=== PATIENT | female | born 1960 | race African-American/Black ===

== ENCOUNTER 2018-01-23 07:01 | Inpatient (IN) | payer OTHER ==
[2018-01-22 14:22] VITALS: BMI 25.8
[2018-01-23] MEDS ORDERED: ROPIVACAINE HCL 0.5% 30ML VIAL ONE (08:20)
[2018-01-23] MEDS ORDERED: MIDAZOLAM HCL 2 MG/2 ML SINGLE DOSE VIAL ONE ×3 (08:23→08:29)
[2018-01-23] MEDS ORDERED: ROCURONIUM BROMIDE 50 MG/5 ML VIAL ONE ×2 (08:29)
[2018-01-23] MEDS ORDERED: fentaNYL CITRATE 250 MCG/5 ML VIAL ONE (08:29)
[2018-01-23] MEDS ORDERED: KETOROLAC TROMETHAMINE 30 MG/1 ML VIAL ONE (08:30)
[2018-01-23] MEDS ORDERED: DEXAMETHASONE SOD PHOSPHATE 4 MG/1 ML VIAL ONE ×2 (08:30→12:28)
[2018-01-23] MEDS ORDERED: LACTATED RINGERS SOLUTION 1,000 ML IV SCH (09:30)
[2018-01-23] MEDS ORDERED: ONDANSETRON 4 MG/2 ML VIAL IVPUSH PRN ×2 (09:30→12:57)
[2018-01-23] MEDS ORDERED: SUCCINYLCHOLINE CHLORIDE 200 MG/10 ML VIAL ONE (09:42)
--- NOTE | 2018-01-23 09:47 | HP ---
Admitting History and Physical - Primary Care Physician PCP: Eliane Walker - Admission Chief Complaint: 57yo P1 with large fibroid uterus and Recurrent Perimenopausal bleed,. 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's Cardiovascular: No: AFIB Pulmonary: No: Asthma Gastrointestinal: No: Ascites ...: No ...: 1 ...Para: 1 - Past Surgical History Past Surgical History: Yes: Breast Biopsy Additional Past Surgical History: Brest biopsy - Advance Directives Advance Directives: Yes: Living Will, Health Care Proxy - Smoking History Smoking history: Never smoked - Alcohol/Substance Use Hx Alcohol Use: Yes (occas) Home Medications - Allergies Allergies/Adverse Reactions: Allergies Allergy/AdvReac Type Severity Reaction Status Date / Time coconut Allergy Intermediate Swelling Verified 01/22/18 14:23 No Known Drug Allergies Allergy Verified 01/22/18 14:23 - Home Medications Home Medications: Ambulatory Orders Aspirin [Aspirin EC] 81 mg PO DAILY 01/22/18 Cholecalciferol (Vitamin D3) [Vitamin D] 2,000 unit PO DAILY 01/22/18 Magnesium Oxide [Magnesium] 500 mg PO DAILY 01/22/18 Multivitamins [Tab-A-Vit -] 1 tab PO DAILY 01/22/18 Red Yeast Rice 600 mg PO DAILY 01/22/18 Simvastatin 10 mg PO HS 01/22/18 Ubidecarenone/Vit E Acet [Co Q-10 100 mg Softgel] 1 each PO DAILY 01/22/18 Family Disease History - Family Disease History Family Disease History: Heart Disease: Father (Prostate, Colon, HTN), CA: Father Review of Systems - Review of Systems Constitutional: reports: No Symptoms Eyes: reports: No Symptoms HENT: reports: No Symptoms Neck: reports: No Symptoms Cardiovascular: reports: No Symptoms Respiratory: reports: No Symptoms Gastrointestinal: reports: No Symptoms Genitourinary: reports: Vaginal Bleeding Breasts: reports: No Symptoms Reported Musculoskeletal: reports: No Symptoms Integumentary: reports: No Symptoms Neurological: reports: No Symptoms Endocrine: reports: No Symptoms Hematology/Lymphatic: reports: No Symptoms Psychiatric: reports: No Symptoms Physical Examination Vital Signs: Vital Signs Temperature 97.7 F 01/23/18 07:48 Pulse Rate 63 01/23/18 07:48 Respiratory Rate 18 01/23/18 07:48 Blood Pressure 104/52 01/23/18 07:48 O2 Sat by Pulse Oximetry (%) 97 01/23/18 07:49 Constitutional: Yes: Well Nourished, No Distress, Calm Eyes: Yes: WNL, Conjunctiva Clear, EOM Intact HENT: Yes: WNL, Atraumatic, Normocephalic Neck: Yes: WNL, Supple, Trachea Midline Cardiovascular: Yes: WNL, Regular Rate and Rhythm Respiratory: Yes: WNL, Regular, CTA Bilaterally Gastrointestinal: Yes: WNL, Normal Bowel Sounds, Soft Renal/: Yes: WNL, Vaginal Bleeding (Uterus ~ 15wks, irregular) Breast(s): Yes: WNL Musculoskeletal: Yes: WNL Extremities: Yes: WNL Integumentary: Yes: WNL Neurological: Yes: WNL, Alert, Oriented ...Motor Strength: WNL Psychiatric: Yes: WNL, Alert, Oriented Assessment/Plan 57yo P1 for CHRISTA/JAMAL/BL Salpingectomy Risks/Benefits/Alternatives discussed She had neg Endometrial biopsy less than 6mn ago All questions answered Consent signed
[2018-01-23] MEDS ORDERED: ceFAZolin 2 GRAM PREMIX BAG IVPB ONE (10:00)
[2018-01-23] MEDS ORDERED: ceFAZolin SODIUM 1 GM VIAL ONE (10:35)
[2018-01-23] MEDS ORDERED: ceFAZolin SODIUM 1 GM VIAL IVPB ONE (10:36)
[2018-01-23] MEDS ORDERED: ePHEDrine SULFATE 50 MG/1 ML AMPULE ONE (12:00)
[2018-01-23] MEDS ORDERED: BACITRACIN 15 GM TUBE TOPICAL OINTMENT ONE (12:26)
[2018-01-23] MEDS ORDERED: BACITRACIN 15 GM TUBE TOPICAL OINTMENT TP ONE (12:43)
[2018-01-23] MEDS ORDERED: NEOSTIGMINE METHYLSULFATE 0.5 MG/ML - 10 ML MDV ONE (12:47)
[2018-01-23] MEDS ORDERED: GLYCOPYRROLATE 0.2 MG/1 ML VIAL ONE (12:47)
--- NOTE | 2018-01-23 12:55 | OP ---
Operative Note - Note: Operative Date: 01/23/18 Pre-Operative Diagnosis: 57yo P1 with Recurrent Perimenopausal bleeding, large fibroid uterus Operation: Supracervical Hysterectomy, Lysis of adhesions, Bilateral salpingectomy Findings: Multiple bowel and bladder adhesions, Broad ligament fibroid, multiple fibroids, Bilateral normal ureters and ovaries visualized Post-Operative Diagnosis: Same as Pre-op (and multiple pelvic adhesions) Surgeon: Eliane Walker Turbine Room Attendant: Tian Milton Anesthesiologist/UNIT EDUCATOR: El Bailey Anesthesia: General Specimens Removed: Urerus, Broad ligament fibroid, Bilateral tubes Estimated Blood Loss (mls): 650 Drains, Volume Out (mls): 250 Fluid Volume Replaced (mls): 1,700 Operative Report Dictated: Yes
[2018-01-23] MEDS ORDERED: IBUPROFEN 600 MG TABLET (FP) PO PRN (12:57)
[2018-01-23] MEDS ORDERED: oxyCODONE HCL 5 MG TABLET PO PRN (12:57)
[2018-01-23] MEDS ORDERED: ELECTROLYTE-148 SOLN 1,000 ML IV SCH (13:00)
[2018-01-23] MEDS ORDERED: ACETAMINOPHEN INJECTION 100 ML IVPB ONE (13:24)
[2018-01-23] MEDS: IBUPROFEN 800 MG/8 ML IJ IVPB PRN ×2 (13:30→21:02)
[2018-01-23] MEDS: ACETAMINOPHEN 1000 MG/100 ML VIAL (NON FORMULARY) IVPB ONE ×2 (14:40→15:22)
[2018-01-23] MEDS ORDERED: ACETAMINOPHEN 1000 MG/100 ML VIAL (NON FORMULARY) IVPB PRN (18:36)
--- NOTE | 2018-01-24 12:37 | PN ---
Progress Note, Physician Chief Complaint: 57yo P1 s/p CHRISTA/ BL salpingectomy, POD # 1 History of Present Illness: no complains, pain well controlled, tolerating clears, ambulating, voiding - Current Medication List Current Medications: Active Medications Acetaminophen (Ofirmev Injection -) 1,000 mg IVPB Q8H PRN PRN Reason: PAIN IF PO NOT EFFECTIVE Parenteral Electrolytes (Plasma-Lyte 148 -) 1,000 mls @ 125 mls/hr IV ASDIR CHRISTA Ibuprofen (Motrin -) 600 mg PO Q6H PRN PRN Reason: FEVER Ibuprofen (Caldolor Injection -) 800 mg IVPB Q6H PRN PRN Reason: Fever - If PO not effective. Last Admin: 01/23/18 21:02 Dose: 800 mg Ondansetron HCl (Zofran Injection) 4 mg IVPUSH Q6H PRN PRN Reason: NAUSEA Last Admin: 01/23/18 16:49 Dose: 4 mg Oxycodone HCl (Roxicodone -) 5 mg PO Q4H PRN PRN Reason: PAIN LEVEL 1-5 Stop: 01/24/18 12:56 - Objective Vital Signs: Vital Signs Temperature 98.5 F 01/24/18 10:00 Pulse Rate 71 01/24/18 10:00 Respiratory Rate 18 01/24/18 10:00 Blood Pressure 94/54 01/24/18 10:00 O2 Sat by Pulse Oximetry (%) 100 01/24/18 10:00 Constitutional: Yes: Well Nourished, No Distress, Calm Eyes: Yes: WNL, Conjunctiva Clear, EOM Intact HENT: Yes: WNL, Atraumatic, Normocephalic Neck: Yes: WNL, Supple, Trachea Midline Cardiovascular: Yes: WNL, Regular Rate and Rhythm Respiratory: Yes: WNL, Regular, CTA Bilaterally Gastrointestinal: Yes: WNL (no CVA tenderness), Normal Bowel Sounds, Soft Genitourinary: Yes: WNL Breast(s): Yes: WNL Musculoskeletal: Yes: WNL Extremities: Yes: WNL Edema: No Wound/Incision: Yes: Clean/Dry, Well Approximated Neurological: Yes: WNL, Alert, Oriented ...Motor Strength: WNL Psychiatric: Yes: WNL, Alert, Oriented Assessment/Plan 57yo P1 POD#1 s/p CHRISTA/JAMAL/BL Salpingectomy Doing well, VSS Follow CBC Continue routine PostOp care encourage ambulation, incentive spirometer Plan to D/C in am
[2018-01-24 14:16] LABS: BASO % 0.3 % (0-2.0); EOS % 0.4 % (0-4.5); HEMATOCRIT 29.3 % (32.4-45.2); HEMOGLOBIN 9.9 GM/dL (10.7-15.3); LYMPH % 15.6 % (8-40); MCH 30.3 pg (25.7-33.7); MCHC 33.6 g/dl (32.0-36.0); MEAN PLT VOLUME 8.3 fl (7.5-11.1); MONO % 8.9 % (3.8-10.2); NEUT % 74.8 % (42.8-82.8); PLATELET COUNT 163 K/MM3 (134-434); RBC 3.25 M/mm3 (3.60-5.2); RDW 13.6 % (11.6-15.6); WHITE BLOOD COUNT 6.6 K/mm3 (4.0-10.0)
[2018-01-24 14:35] LABS: ANION GAP 6 (8-16); BLOOD UREA NITROGEN 12 mg/dL (7-18); CALCIUM 7.9 mg/dL (8.5-10.1); CHLORIDE 106 mmol/L (98-107); CO2 29 mmol/L (21-32); GLUCOSE,RANDOM 109 mg/dL (74-106); POTASSIUM 3.5 mmol/L (3.5-5.1); SODIUM 141 mmol/L (136-145)
--- NOTE | 2018-01-24 15:14 | PN ---
Progress Note (short form) - Note Progress Note: Anesthesia postop note 57 y/o F s/p GA for AIDEN, TAP blocks for postop pain management POD#1, vss, aaox3, pain well controlled, no complaints. No anesthesia complications.
[2018-01-25 08:32] VITALS: BP 105/57; PULSE 73; TEMP 98.3
--- NOTE | 2018-01-25 14:20 | PN ---
Progress Note, Physician Chief Complaint: 57yo P1 s/p CHRISTA/ BL salpingectomy, POD # 1 History of Present Illness: no complains, pain well controlled, tolerating clears, ambulating, voiding - Current Medication List Current Medications: Active Medications Acetaminophen (Ofirmev Injection -) 1,000 mg IVPB Q8H PRN PRN Reason: PAIN IF PO NOT EFFECTIVE Parenteral Electrolytes (Plasma-Lyte 148 -) 1,000 mls @ 125 mls/hr IV ASDIR CHRISTA Ibuprofen (Motrin -) 600 mg PO Q6H PRN PRN Reason: FEVER Ibuprofen (Caldolor Injection -) 800 mg IVPB Q6H PRN PRN Reason: Fever - If PO not effective. Last Admin: 01/23/18 21:02 Dose: 800 mg Ondansetron HCl (Zofran Injection) 4 mg IVPUSH Q6H PRN PRN Reason: NAUSEA Last Admin: 01/23/18 16:49 Dose: 4 mg - Objective Vital Signs: Vital Signs Temperature 98.3 F 01/25/18 08:31 Pulse Rate 73 01/25/18 08:31 Respiratory Rate 18 01/25/18 08:31 Blood Pressure 105/57 01/25/18 08:31 O2 Sat by Pulse Oximetry (%) 100 01/24/18 10:00 Constitutional: Yes: Well Nourished Eyes: Yes: WNL HENT: Yes: WNL, Atraumatic, Normocephalic. No: Tonsillar Exudate Neck: Yes: WNL, Supple, Trachea Midline Cardiovascular: Yes: WNL, Regular Rate and Rhythm Respiratory: Yes: WNL, Regular, CTA Bilaterally Gastrointestinal: Yes: WNL, Normal Bowel Sounds, Soft Genitourinary: Yes: WNL Breast(s): Yes: WNL Musculoskeletal: Yes: WNL Extremities: Yes: WNL Integumentary: Yes: WNL Wound/Incision: Yes: Clean/Dry, Well Approximated Neurological: Yes: WNL, Alert, Oriented ...Motor Strength: WNL Psychiatric: Yes: WNL, Alert, Oriented Labs: CBC, BMP 01/24/18 14:00 01/24/18 14:00 Assessment/Plan 57yo P1 s/p CHRISTA/JAMAL/BL Salpingectomy Doing well Afebrile VSS cont routine post op care
--- NOTE | 2018-01-26 18:12 | PATH ---
Surgical Pathology Report Patient Name: ADRIAN PRECIADO [facility]. Rec. #: [id number] /Age/Gender: 1960 (Age: 57) / F Account: [id number] Location: [facility] OBS/MATERNAL CHILD NURSE Taken: 01/23/2018 Received: 01/23/2018 Reported: 01/26/2018 Physicians: Eliane Walker M.D. Specimen(s) Received UTERUS FIBROIDS BILATERAL FALLOPIAN TUBES Clinical History Postmenopausal bleeding, fibroid uterus Final Diagnosis UTERUS, FIBROIDS, BILATERAL FALLOPIAN TUBES, SUPRACERVICAL HYSTERECTOMY AND BILATERAL SALPINGECTOMY: PROLIFERATIVE ENDOMETRIUM. MYOMETRIUM WITH SUBSEROSAL AND INTRAMURAL LEIOMYOMA(TA), FOCALLY DEGENERATED AND CALCIFIED. SCANT CAUTERIZED ENDOCERVICAL EPITHELIUM. BILATERAL FALLOPIAN TUBES (INCLUDING FULL LUMINAL PORTION). Electronically Signed Mary Jane Roman M.D. Gross Description Received in formalin labeled "uterus, fibroids, bilateral fallopian tubes," is a 541 g supracervically amputated uterus with no attached adnexa. The bilateral, undesignated fallopian tubes are separately received within the same container. The specimen measures 13 cm from anterior to posterior, 13 cm from left to right and 9.5 cm from superior to inferior. The serosa is patricia-maradiaga with abundant bulging subserosal nodules. The endometrial cavity is distorted by bulging intramural nodules. The endometrial cavity measures 6 cm in length and averages 2 cm in from cornu to cornu. The endometrium is patricia-red and averages 0.1 cm in thickness. The myometrium displays abundant intramural nodules, measuring up to 5.5 cm in greatest dimension. The cut surface of the subserosal and intramural nodules is patricia and rubbery with whorled architecture. No areas of hemorrhage or necrosis are identified. The remaining myometrium is patricia-pink and measures up to 4.6 cm in thickness. There is a 108 g, 6.0 x 5.5 x 5.0 cm calcified fibroid separately received within the same container. Also received within the same container are 2 undesignated, fimbriated fallopian tubes measuring 2.5 and 4.5 cm in length. The outer surfaces are maradiaga purple and smooth. Sectioning reveals unremarkable lumen. [employer] sections are submitted in 18 cassettes as follows: 1-cervical stump margin of resection; 1-7-kausypzdvlwdmv; 0-8-kwagjoycpg nodules; 8-9-largest intramural nodule; 08-84-ofbrhhbrfu intramural nodules; 26-22-tagkmnmcff received calcified fibroid, following decalcification; 15-longer fallopian tube fimbria; 16-cross sections of longer fallopian tube; 17-shorter fallopian tube fimbria; 18-cross sections of shorter fallopian tube. 01/24/2018 [facility]01/24/2018
--- NOTE | 2018-02-03 17:33 | OP ---
DATE OF OPERATION: 01/23/2018 PREOPERATIVE DIAGNOSIS: A 57-year-old para 1 with recurrent perimenopausal postmenopausal bleeding. Large fibroid uterus. OPERATION: Supracervical hysterectomy, lysis of adhesions, bilateral salpingectomy. POSTOPERATIVE DIAGNOSIS: A 57-year-old para 1 with recurrent perimenopausal postmenopausal bleeding. Large fibroid uterus. Multiple pelvic adhesions. FINDINGS: Multiple bowel and bladder adhesions, broad ligament fibroid, multiple fibroids. Bilateral normal ureters and ovaries visualized. SURGEON: Eliane Walker MD LANG INTERPRETER: Tian Milton MD ANESTHESIOLOGIST: El Bailey ANESTHESIA: General. SPECIMENS REMOVED: Uterine fundus, broad ligament fibroid, and bilateral tubes. DESCRIPTION OF OPERATIVE PROCEDURE: After ensuring informed consent, the patient was brought to the operating room where she was placed in supine position. Abdomen, perineum, and vagina were prepped and draped in a sterile fashion. Deleon catheter was placed sterilely prior to the procedure. Pfannenstiel incision was made with a scalpel and carried down to the level of fascia with the Bovie cautery. The fascia was incised in the midline and dissected off the rectus abdominis muscle. Rectus abdominis muscle was split in the midline. The peritoneum was tented with hemostat and incised with Metzenbaum scissors with good visualization of underlying organs. The peritoneum was dissected inferiorly and superiorly, and normal abdominal contents were visualized. The difficulty was encountered exteriorizing uterus because it was adherent to the sigmoid colon and several other loops of bowel as well as the bladder and right lateral pelvic sidewall. Uterus was extremely distorted with multiple fibroids the majority of which were degenerated. Round ligament was stretched out and was visualized and dissected with LigaSure in pairs on both sides of the uterus. The bladder flap was created with LigaSure and Metzenbaum scissors, and bladder adhesions were dissected off the vesicouterine peritoneum. Subsequently, uterine arteries were identified and dissected off individually, Joaquín clamped, and tied with 0 Vicryl tie bilaterally. The peritoneum on the posterior wall of the uterus was firmly adherent to multiple loops of bowel, and it was shaved off the uterus and left in the abdomen on the bowel. Subsequently, the uterus was mobilized. Uterosacral ligaments were cauterized with LigaSure in pairs bilaterally, and further mobilization of the uterus was accomplished. The utero-ovarian ligaments were identified and dissected bilaterally. Normal tubes and ovaries were noted. Subsequently, each tube was dissected off individually, and ovaries were left attached infundibulopelvic ligaments and were noted to be viable. The bilateral tubes were sent to Pathology. The uterine artery was dissected further off the cervix with downward clamping by using LigaSure and Heaneys, and the uterus was brought out further. Subsequently, one more downward clamp was placed along the cervix. Subsequently, the uterine fundus was dissected off the cervical stump. The parasitic broad ligament fibroid was noted and was dissected off the broad ligament. It was at the level of the lower uterine segment. It was dissected off and sent with the rest of the specimen to pathology. Generalized oozing was noted in the area of the lower uterine segment in the right-sided pelvic sidewall, which required greater dissection, and Surgicel was placed in that area after the area was copiously irrigated and found to be predominantly hemostatic, but in order to achieve further hemostasis, Surgicel was placed in the area. Subsequently, the cervical stump was sutured over and imbricated with 0 Vicryl. Excellent hemostasis was achieved. The peritoneum was subsequently closed in a running fashion with 0 Vicryl. Muscle was reapproximated in the midline. The fascia was closed with 0 Vicryl, and subcutaneous suture was placed with 3-0 Vicryl. Skin was closed with 3-0 Biosyn in a running fashion. All sponge and instrument counts were correct x2. The patient was extubated. Estimated blood loss was 650 mL. Urine output was 250 mL. The patient received 1700 mL of IV fluid and brought to the recovery room in stable condition. Cesar [id number]
== END 2018-01-25 14:40 | disposition home or self-care (01) | DRG 743 ==
LOC: JSAMEDAYSX 07:01 → EDSTATUS 09:00 → J3W 15:03
PROVIDERS: ADMIT Obstetrics & Gynecology; ATTEND Obstetrics & Gynecology
PROC: 0UT70ZZ Resection of Bilateral Fallopian Tubes, Open Approach (ICD-10-PCS; 2018-01-23)
PROC: 0UT90ZL Resection of Uterus, Supracervical, Open Approach (ICD-10-PCS; principal; 2018-01-23 09:00)
DX: D25.9 Leiomyoma of uterus, unspecified (principal)
CPT/HCPCS: 36415; 80048; 85025; 86850; 86900; 86901; 94010; 94760; J0131